=== PATIENT | female | born 1965 | race American Indian/Alaskan Native ===

== ENCOUNTER 2018-09-07 20:25 | Emergency (ER) | payer SELFPAY ==
[2018-09-07 22:09] LABS: Basophils # (Auto) 0.1 K/mm3 (0.0-0.1); Basophils % (Auto) 1.5 % (0.0-1.8); Eosinophils % (Auto) 0.4 % (0.0-4.3); Hematocrit 38.1 % (30.3-42.9); Hemoglobin 12.3 gm/dl (10.1-14.3); Lymphocytes # (Auto) 1.5 K/mm3 (1.2-5.4); Mean Corpuscular HGB Conc 32 % (30-34); Mean Corpuscular Volume 90 fl (79-97); Monocytes # (Auto) 0.6 K/mm3 (0.0-0.8); Monocytes % (Auto) 6.3 % (0.0-7.3); Platelet Count 358 K/mm3 (140-440); Red Blood Count 4.23 M/mm3 (3.65-5.03); Red Cell Distribution Width 15.1 % (13.2-15.2)
[2018-09-07 22:28] LABS: BUN/Creatinine Ratio 13; Blood Urea Nitrogen 18 mg/dL (7-17); Calcium 9.4 mg/dL (8.4-10.2); Hemolysis Index 4
[2018-09-07 22:47] VITALS: BP 102/56
--- NOTE | 2018-09-07 23:08 | Emergency Department Report ---
ED General Adult HPI - General Chief complaint: Dizziness Stated complaint: HIGH BLOOD SUGAR Time Seen by Provider: 09/07/18 22:35 Source: patient, RN notes reviewed Mode of arrival: Ambulatory Limitations: No Limitations - History of Present Illness Initial comments: This is a 53-year-old female who is known to this provider previously. She reports that she is not , and reports that she has a follow-up plan with her primary care doctor in [place] on September 21. She reports that she recently moved here from [place]. She has a history of obesity, hypertension, and diabetes. Patient presents to the ER after being referred to the emergency room from a local urgent care center. Patient presented to the urgent care Center with a complaint of intermittent vaginal bleeding for 2 weeks. This is atypical for her. The past 24 hours, she has used 4 pads. There is no vomiting blood. There is no defecating blood. There is no leg pain. There is no leg swelling. No recent surgery. Patient also complains of dizziness for one month. The dizziness is associated with intermittent binocular blurry vision, painless, now resolved, and inte rmittent sensation of feeling "off." This is not new, worsening or different, is currently resolved, and again, has been present for approximately 4-6 weeks. Her vaginal bleeding is present for 2 weeks, is intermittent, it does not radiate anywhere, does not have exacerbating or infectious. "Dizziness" does not have exacerbating or relieving factors. Denies headache, neck pain, chest pain, abdominal pain, shortness of breath, irritative, obstructive urinary symptoms. Patient was also sent to the ER for evaluation of hyperglycemia. -: Gradual, week(s), month(s) Quality: other Consistency: other Improves with: other Worsens with: other Associated Symptoms: other - Related Data Allergies Allergy/AdvReac Type Severity Reaction Status Date / Time No Known Allergies Allergy Unverified 09/07/18 21:36 ED Review of Systems ROS: Stated complaint: HIGH BLOOD SUGAR Other details as noted in HPI Constitutional: denies: fever Eyes: denies: eye discharge, vision change ENT: denies: epistaxis Respiratory: denies: cough Cardiovascular: denies: chest pain, palpitations Gastrointestinal: denies: abdominal pain, nausea, vomiting Genitourinary: abnormal menses. denies: dysuria Musculoskeletal: denies: back pain, arthralgia, myalgia Neurological: denies: headache, weakness Psychiatric: anxiety ED Past Medical Hx - Past Medical History Previous Medical History?: Yes Hx Hypertension: Yes Hx Diabetes: Yes Additional medical history: high cholesterol - Surgical History Past Surgical History?: No Additional Surgical History: myomectomy breast reduction - Social History Smoking Status: Current Every Day Smoker Substance Use Type: None ED Physical Exam - General Limitations: No Limitations General appearance: alert, in no apparent distress - Head Head exam: Present: atraumatic, normocephalic - Eye Eye exam: Present: normal appearance, PERRL, EOMI, other (visual acuity intact to finger counting, color perception, reading at a close distance). Absent: nystagmus - ENT ENT exam: Present: normal exam, normal orophraynx, mucous membranes moist, normal external ear exam - Neck Neck exam: Present: normal inspection, full ROM. Absent: tenderness, meningismus - Respiratory Respiratory exam: Present: normal lung sounds bilaterally. Absent: respiratory distress - Cardiovascular Cardiovascular Exam: Present: regular rate, normal rhythm, normal heart sounds. Absent: bradycardia, tachycardia, irregular rhythm, systolic murmur, diastolic murmur, rubs, gallop - GI/Abdominal GI/Abdominal exam: Present: soft. Absent: distended, tenderness, guarding, rebound, pulsatile mass - Extremities Exam Extremities exam: Present: normal inspection, full ROM, other (2+ pulses noted in the bilateral upper, lower extremities. Compartments soft. No long bony tenderness. The pelvis is stable.). Absent: pedal edema, joint swelling, calf tenderness - Back Exam Back exam: Present: normal inspection, full ROM. Absent: tenderness, CVA tenderness (R), paraspinal tenderness, vertebral tenderness - Neurological Exam Neurological exam: Present: alert, oriented X3, CN II-XII intact, normal gait (there is no past-pointing. There is normal heel to collier. There is normal gait. There is negative Romberg examination. There is normal tandem gait.), other (Extraocular movements intact. Tongue midline. No facial droop. Facial sensation intact to light touch in the V1, V2, V3 distribution bilaterally. 5 and 5 strength in 4 extremities.. Sensation is intact to light touch in 4 extremities.). Absent: motor sensory deficit - Psychiatric Psychiatric exam: Present: anxious - Skin Skin exam: Present: warm, dry, intact, normal color. Absent: rash ED Course Vital Signs 09/07/18 09/07/18 21:13 22:46 Temperature 98.3 F 98.3 F Pulse Rate 98 H 89 Respiratory 16 19 Rate Blood Pressure 117/71 Blood Pressure 102/56 [Left] O2 Sat by Pulse 98 100 Oximetry ED Medical Decision Making - Lab Data Result diagrams: 09/07/18 21:57 09/07/18 21:57 Vital Signs 09/07/18 09/07/18 21:13 22:46 Temperature 98.3 F 98.3 F Pulse Rate 98 H 89 Respiratory 16 19 Rate Blood Pressure 117/71 Blood Pressure 102/56 [Left] O2 Sat by Pulse 98 100 Oximetry Lab Results 09/07/18 09/07/18 09/07/18 Range/Units 21:43 21:57 21:57 WBC 9.1 (4.5-11.0) K/mm3 RBC 4.23 (3.65-5.03) M/mm3 Hgb 12.3 (10.1-14.3) gm/dl Hct 38.1 (30.3-42.9) % MCV 90 (79-97) fl MCH 29 (28-32) pg MCHC 32 (30-34) % RDW 15.1 (13.2-15.2) % Plt Count 358 (140-440) K/mm3 Lymph % (Auto) 17.0 (13.4-35.0) % [place] % (Auto) 6.3 (0.0-7.3) % Eos % (Auto) 0.4 (0.0-4.3) % Baso % (Auto) 1.5 (0.0-1.8) % Lymph # 1.5 (1.2-5.4) K/mm3 [place] # 0.6 (0.0-0.8) K/mm3 Eos # 0.0 (0.0-0.4) K/mm3 Baso # 0.1 (0.0-0.1) K/mm3 Seg Neutrophils % 74.8 H (40.0-70.0) % Seg Neutrophils # 6.8 (1.8-7.7) K/mm3 Sodium 137 (137-145) mmol/L Potassium 4.8 (3.6-5.0) mmol/L Chloride 96.8 L (98-107) mmol/L Carbon Dioxide 25 (22-30) mmol/L Anion Gap 20 mmol/L BUN 18 H (7-17) mg/dL Creatinine 1.4 H (0.7-1.2) mg/dL Estimated GFR 39 ml/min BUN/Creatinine Ratio 13 % Glucose 288 H (65-100) mg/dL POC Glucose 278 H (70-105) Calcium 9.4 (8.4-10.2) mg/dL Troponin T < 0.010 (0.00-0.029) ng/mL 09/07/18 Range/Units 22:47 WBC (4.5-11.0) K/mm3 RBC (3.65-5.03) M/mm3 Hgb (10.1-14.3) gm/dl Hct (30.3-42.9) % MCV (79-97) fl MCH (28-32) pg MCHC (30-34) % RDW (13.2-15.2) % Plt Count (140-440) K/mm3 Lymph % (Auto) (13.4-35.0) % [place] % (Auto) (0.0-7.3) % Eos % (Auto) (0.0-4.3) % Baso % (Auto) (0.0-1.8) % Lymph # (1.2-5.4) K/mm3 [place] # (0.0-0.8) K/mm3 Eos # (0.0-0.4) K/mm3 Baso # (0.0-0.1) K/mm3 Seg Neutrophils % (40.0-70.0) % Seg Neutrophils # (1.8-7.7) K/mm3 Sodium (137-145) mmol/L Potassium (3.6-5.0) mmol/L Chloride (98-107) mmol/L Carbon Dioxide (22-30) mmol/L Anion Gap mmol/L BUN (7-17) mg/dL Creatinine (0.7-1.2) mg/dL Estimated GFR ml/min BUN/Creatinine Ratio % Glucose (65-100) mg/dL POC Glucose 267 H (70-105) Calcium (8.4-10.2) mg/dL Troponin T (0.00-0.029) ng/mL - EKG Data -: EKG Interpreted by [place] EKG shows normal: sinus rhythm Rate: normal - EKG Data When compared to previous EKG there are: previous EKG unavailable 09/07/18 23:05 Sinus, 91 bpm, left axis deviation, left ventricular hypertrophy, intervals within normal limits, abnormal EKG, no prior for comparison, not consistent with ST elevation myocardial infarction. - Medical Decision Making Differential diagnosis, including but not limited to: Menopause, hyperglycemia, diabetic retinopathy, diabetic neuropathy, hyperglycemia Assessment and plan: 53-year-old female with a complaint of 1: Intermittent vaginal bleeding for 2 weeks. Patient reports that she is not . She is afebrile with reassuring vital signs. She declined a gynecologic examination at this time. Hemoglobin, hematocrit appropriate and within normal limits, and does not require packed red blood cell transfusion. The patient may follow up with an outpatient event promotions coordinator for this. This does not appear to represent an emergent medical condition. 2: Intermittent dizziness for 4-6 weeks. She has a [place] Coma Scale of 15, with an NIH score of 0. She is not tachycardic or hypoxic, and she has a normal neurologic examination. Patient low risk by well's criteria, and does not have physical exam evidence to suggest pulmonary embolus or thromboembolic disease. Hyperglycemia reviewed and appreciated, not consistent with anion gap acidosis, does not require emergent intervention. This does not appear to represent an emergent medical condition, and can be followed up as an outpatient. Incidentally found to have mild renal insufficiency, and mild hyperglycemia. He also developed these findings, as well as incidental EKG abnormalities, and patient is counseled to follow up with outpatient primary care doctor next month, which she reports she is reliable to do. The patient does not appear to have an emergent medical condition at this time, and she is medically suitable to follow up with an outpatient primary care doctor for her chronic medical issues. A troponin sent prior to my evaluation, I do not suspect acute coronary syndrome based off of the patient's history, in addition, I find the patient to be low risk by the heart score, and has been the [employer] clinical policy, myocardial infarction may be excluded with 1 set of cardiac enzymes at symptoms have been present for greater than 8 hours. Critical care attestation.: If time is entered above; I have spent that time in minutes in the direct care of this critically ill patient, excluding procedure time. ED Disposition Clinical Impression: History of vaginal bleeding, Hyperglycemia, Renal insufficiency Disposition: DC-01 TO HOME OR SELFCARE Is pt being admited?: No Does the pt Need Aspirin: No Condition: Stable Additional Instructions: Discontinue consumption of Motrin, ibuprofen, Naprosyn, Aleve. Limit salt intake, and follow up with her primary care doctor or nephrology specialist for renal insufficiency within the next [address] Guallpa is a local renal specialist. Follow-up with an TRANSLATION DIRECTOR physician within the next month for vaginal bleeding. Follow-up with the primary care doctor for renal insufficiency, high blood sugar within the next month. Return to the ER right away with new pain, worsened pain, migration of pain, projectile vomiting, change in mental status, confusion, inability to speak, inability to breathe, new, worsening or different symptoms. Return for bleeding more than 2 pads soaked per hour. Referrals: DIONNA GUALLPA MD [Staff Physician] - as needed [facility] [Provider Group] - as needed [facility]Provider [facility]] - as needed [facility] [Provider Group] - as needed [facility] [Provider Group] - as needed
== END 2018-09-07 23:30 | disposition home or self-care (01) ==
LOC: ED 20:25
DX: N93.9 Abnormal uterine and vaginal bleeding, unspecified (principal); E11.65 Type 2 diabetes mellitus with hyperglycemia; N28.9 Disorder of kidney and ureter, unspecified; I10 Essential (primary) hypertension; E78.00 Pure hypercholesterolemia, unspecified; F17.200 Nicotine dependence, unspecified, uncomplicated
CPT/HCPCS: 36415; 80048; 82962; 84484; 85025; 93005; 93010